=== PATIENT | female | born 1985 | race Caucasian/White ===

== ENCOUNTER 2018-09-03 00:02 | Inpatient (IN) | payer BC, OTHER ==
[2018-09-03 00:43] LABS: #Eosinphils 0.1 thou/uL (0.0-0.7); #Lymphocytes 0.9 thou/uL (1.20-3.40); #Monocytes 0.7 thou/uL (0.11-0.59); #Neutrophils 8.6 thou/uL (1.40-6.50); %Basophils 0.3 % (0.0-1.0); %Eosinophils 0.7 % (0.0-10.0); %Lymphocytes 8.9 % (21.0-51.0); %Monocytes 6.4 % (0.0-10.0); %Neutrophils 83.7 % (42.0-75.0); Hemoglobin 14.1 g/dL (12.0-16.0); Mean Corpuscular HGB CONC 33.4 g/dL (32.0-36.0); Mean Corpuscular Hemoglobin 30.5 pg (27.0-31.0); Mean Corpuscular Volume 91.5 fL (78.0-98.0); Mean Platelet Volume 8.4 fL (7.4-10.4); Platelet Count 249 thou/uL (130-400); RBC Distribution Width 11.9 % (11.5-14.5); White Blood Cell (WBC) Count 10.2 thou/uL (4.8-10.8)
[2018-09-03 01:03] LABS: ALT (SGPT) 189 U/L (8-55); AST (SGOT) 104 U/L (5-34); Albumin 4.2 g/dL (3.5-5.0); Alkaline Phosphatase 273 U/L (40-150); Anion Gap 17 mmol/L (10-20); BUN (Urea Nitrogen) 8 mg/dL (7.0-18.7); Bilirubin, Total 8.3 mg/dL (0.2-1.2); Calc. Creatinine Clearance 0 mL/min (70-130); Calcium 9.6 mg/dL (7.8-10.44); Carbon Dioxide 22 mmol/L (22-29); Chloride 100 mmol/L (98-107); Estimated GFR-MDRD Greater than 90; Globulin 3.4 g/dL (2.4-3.5); Glucose 90 mg/dL (70-105); Lipase 13 U/L (8-78); Potassium 3.8 mmol/L (3.5-5.1); Protein, Total 7.6 g/dL (6.0-8.3); Sodium 135 mmol/L (136-145)
[2018-09-03] MEDS ORDERED: Ondansetron PF 4 MG/2 ML Vial ONE ×2 (01:37→14:16)
[2018-09-03] MEDS ORDERED: Fentanyl 100 MCG/2 ML VIAL ONE ×3 (01:37→23:55)
[2018-09-03] MEDS ORDERED: MEROPENEM 1 GM/50 ML 1 GM in Premix Bag 1 BAG IVPB SCH (02:15)
[2018-09-03 02:30] LABS: BHCG - Serum Negative (NEGATIVE); Pregs Control Background? CLEAR/WHITE (CLR/WHITE); Pregs Control Bar Appear? YES (CONTROL BAR)
[2018-09-03] MEDS ORDERED: cefOXitin Sodium/Dextrose,Iso 1 GM in Premix Bag 1 BAG IVPB SCH ×2 (02:30→09:00)
[2018-09-03 02:52] LABS: Pregnancy Test - Urine (BHCG) Negative (Negative); Pregu Control Background? CLEAR/WHITE (CLR/WHITE); Pregu Control Bar Appear? YES (CONTROL BAR)
[2018-09-03 02:53] LABS: Bilirubin Large (Negative); Blood, Urine Negative (Negative); Clarity CLEAR (Clear); Glucose, Urine (Dipstick) Negative (Negative); Leukocyte Negative (Negative); Nitrite Negative (Negative); Protein, Urine (Dipstick) Negative (Neg-Trace); Specific Gravity 1.013 (1.002-1.036); Specific Gravity, Urine 1.013 (1.002-1.036)
[2018-09-03] MEDS ORDERED: Ondansetron PF 4 MG/2 ML Vial IVP PRN ×3 (03:24→22:56)
[2018-09-03 03:26] VITALS: BMI 18.9
[2018-09-03] MEDS: Sodium Chloride 0.9% 1,000 ML IV SCH ×2 (03:53→13:54)
[2018-09-03] MEDS: Fentanyl 100 MCG/2 ML VIAL SLOW IVP PRN ×2 (09:21→13:28)
--- NOTE | 2018-09-03 09:54 | CON ---
DATE OF CONSULTATION: 09/03/2018 REASON FOR CONSULTATION: Choledocholithiasis. HISTORY OF PRESENT ILLNESS: Shivani Bonner is a 33-year-old woman who is generally healthy. She has no prior history of gastrointestinal, liver, pancreatic, or gallbladder issues. For the past couple of years, she has intermittently had some issues with right upper quadrant pain, but now for the past couple of weeks this has been escalating. There has been associated nausea with one episode of vomiting. The pain really escalated last night which prompted her presentation. Upon evaluation, she was found to have significant elevation in LFTs with total bilirubin up to 8.3, AST 104, ALT 189. Lipase is normal. She had an ultrasound of the abdomen, which demonstrated a contracted gallbladder with gallstones and a common bile duct dilated to 9 mm. She then had a CT of the abdomen and this demonstrated thickening of the gallbladder with stones, though the common bile duct was read as normal in caliber on the CT examination. She is doing a bit better with some analgesia overnight on the floor. She is hemodynamically stable. Surgical consultation is pending. Reconsulted for consideration of ERCP and concern for choledocholithiasis. REVIEW OF SYSTEMS: Full review of systems including constitutional, head, eyes, ears, nose, throat, GI, , cardiovascular, respiratory, musculoskeletal, neurologic systems is negative except as noted in the HPI. PAST MEDICAL HISTORY: Nothing significant. ALLERGIES: NO KNOWN DRUG ALLERGIES. MEDICATIONS: None. SOCIAL HISTORY: No smoking, alcohol, or drug use. FAMILY HISTORY: Noncontributory. PHYSICAL EXAMINATION: VITAL SIGNS: Temperature 98.1, pulse 74, blood pressure 90/55, and 97% oxygen saturation on room air. GENERAL: A 33-year-old woman lying in bed comfortably, in no distress. SKIN: She is slightly jaundiced. No rash visible or palpable. EYES: Mild scleral icterus. Extraocular movements intact. ENT: Mucous membranes moist. No oral lesions. LYMPH: No submandibular or supraclavicular lymphadenopathy. THYROID: Nontender to palpation. HEART: Regular rate and rhythm. LUNGS: Clear to auscultation bilaterally. ABDOMEN: Bowel sounds present. Soft. Tender to palpation in the right upper quadrant. No guarding or rebound tenderness. EXTREMITIES: No peripheral edema. VESSELS: Radial pulses 2+ bilaterally. NEUROLOGIC: Cranial nerves 2 to 12 intact bilaterally. No focal deficits. LABORATORY STUDIES: Total bilirubin 8.3, alkaline phosphatase 273, AST 104, ALT 189, albumin 4.2. test negative. BUN 8, creatinine 0.66. Lipase only 13. WBC 10.2, hemoglobin is 14.1, platelets 249. IMAGING STUDIES: Abdominal ultrasound shows common bile duct dilation to 9 mm, contracted gallbladder with gallstones, heterogeneous appearance to the liver. CT scan of the abdomen demonstrates thickened gallbladder wall with gallstones. CBD was read as normal on the CT. ASSESSMENT AND PLAN: 1. Choledocholithiasis. 2. Cholecystitis. I had a long discussion with the patient this morning regarding her imaging and lab findings, the significant elevation of bilirubin as well as imaging suggesting biliary dilation, all seems consistent with choledocholithiasis and cholecystitis. She is going to need ERCP and laparoscopic cholecystectomy. I discussed the case also with Dr. Rees who will see the patient later today. We are going to plan for ERCP later today, perhaps followed by laparoscopic cholecystectomy either directly afterward or tomorrow. I discussed the risks and benefits of ERCP with the patient. She does desire to proceed for now, continue current supportive care. She is receiving IV antibiotics. Job ID: [id number]
[2018-09-03] MEDS ORDERED: Morphine 4 MG/ML VIAL SLOW IVP PRN ×2 (13:08→23:30)
[2018-09-03] MEDS ORDERED: Dextrose 5% in Water 1,000 ML IV PRN (13:08)
[2018-09-03] MEDS ORDERED: Dextrose 50% Abboject 50 ML SYRINGE SLOW IVP PRN (13:08)
[2018-09-03] MEDS ORDERED: cefOXitin Sodium/Dextrose,Iso 2 GM in Premix Bag 1 BAG IVPB SCH (13:15)
[2018-09-03] MEDS ORDERED: PROPOFOL 200 MG/20 ML VIAL ONE (14:16)
[2018-09-03] MEDS ORDERED: Glycopyrrolate 0.2 MG/ML 5 ML SYRINGE ONE (14:16)
[2018-09-03] MEDS ORDERED: Ketorolac Tromethamine 30 MG/ML VIAL ONE (14:16)
[2018-09-03] MEDS ORDERED: Rocuronium Bromide 10 MG/ML (10ML VIAL) ONE (14:16)
[2018-09-03] MEDS ORDERED: Succinylcholine Chloride 20 MG/ML 10 ml SYRINGE FS ONE ×2 (14:16→17:58)
[2018-09-03] MEDS ORDERED: Dexamethasone 20 MG/5 ML VIAL ONE (14:16)
[2018-09-03] MEDS ORDERED: Metoclopramide HCl 10 MG/2 ML VIAL ONE (14:16)
[2018-09-03] MEDS ORDERED: Lidocaine 1% PF 5 ML VIAL ONE (14:16)
--- NOTE | 2018-09-03 14:40 | HP ---
CHIEF COMPLAINT: Epigastric abdominal pain. HISTORY OF PRESENT ILLNESS: The patient is a 33-year-old very pleasant white female. She is quite thin (her BMI looks like it is 19). For the past couple of weeks, she has been having epigastric abdominal pain. She saw a physician in [place], who ordered some laboratory studies that apparently showed some elevated liver function tests. I do not have these results. He ordered outpatient radiologic studies on her yesterday. She had a CT scan of her abdomen and pelvis as well as an abdominal ultrasound performed. The CT scan showed a thickened gallbladder wall. It was felt to be the typical of cholelithiasis. No definite ductal dilatation was noted. The gallbladder ultrasound revealed findings typical of a contracted gallbladder with gallstones. There appeared to be ductal dilatation as well. LABORATORY STUDIES: Revealed a normal CBC, although she did have a left shift. Her chemistry profile revealed essentially normal electrolytes, but her bilirubin is elevated at 8.3. Her transaminases are elevated at 104 and 189. Her alkaline phosphatase is elevated at 273. Her lipase is negative and her test was negative. Following her abnormal x-ray studies, she felt that she could not make it through the weekend due to her discomfort and she presented to the emergency room. It was at that point the laboratory studies were performed. I was then consulted for further management. Due to the markedly elevated bilirubin level and the suspected ductal dilatation, I recommended admission to my service with a GI consultation to Dr. Ricardo. He has already seen her and recommended ERCP, with which I agree. PAST MEDICAL HISTORY: Essentially negative. PAST SURGICAL HISTORY: None. MEDICATIONS: None. ALLERGIES: NO KNOWN DRUG ALLERGIES. PERSONAL AND SOCIAL HISTORY: She is with 5 children and lives in [place]. Her works for [employer]. REVIEW OF SYSTEMS: Otherwise unremarkable. FAMILY HISTORY: Noncontributory. PHYSICAL EXAMINATION: VITAL SIGNS: She is afebrile. Pulse is 66 to 74, blood pressure is 101/62. GENERAL: She is a well-developed, well-nourished, very pleasant female, resting in bed, in no acute distress. She is alert oriented x3. HEAD, EYES, EARS, NOSE, AND THROAT: Unremarkable. NECK: Supple without mass or tenderness. LUNGS: Clear to auscultation throughout. CARDIAC: Regular rate and rhythm without murmur. ABDOMEN: Soft and nondistended. She does complain of tenderness in the right upper quadrant that is worse with palpation. EXTREMITIES: Unremarkable. ASSESSMENT: The patient with what appears to be cholelithiasis and potentially choledocholithiasis. I agree with ERCP per Dr. Ricardo. When he completes his procedure, I would plan on performing laparoscopic cholecystectomy under the same anesthetic. I have discussed all this in detail with the patient. She understands and agrees to proceed with the surgery at this time. Job ID: [id number]
[2018-09-03] MEDS: D5 1/2 NS w/20 mEq KCL 1,000 ML IV SCH (16:11)
[2018-09-03] MEDS ORDERED: Iothalamate Meglumine 60% 50 ML VIAL FS ONE ×2 (17:36→19:49)
[2018-09-03] MEDS ORDERED: Midazolam HCl 2 mg/2 ml Vial ONE ×2 (17:38→17:50)
[2018-09-03] MEDS ORDERED: Fentanyl 250 MCG/5 ML VIAL ONE (17:38)
[2018-09-03] MEDS ORDERED: Indomethacin 50 MG SUPP ONE (17:41)
[2018-09-03] MEDS ORDERED: Bupivacaine/Epinephrine 0.25% 30 ML VIAL ONE ×2 (18:30→19:18)
--- NOTE | 2018-09-03 19:35 | RAD ---
ERCP: 09/03/18 HISTORY: Patient with biliary obstruction. Single intraoperative ERCP images obtained of the right upper quadrant of the abdomen. There is a gastroduodenal scope in place. The distal common bile duct has been catheterized and injec ml. A balloon is seen in the distal aspect. The proximal aspect of the common bile duct as well as t he common hepatic duct and intrahepatic biliary ducts are dilated. Radiopaque contrast seen in the co tito. IMPRESSION: Dilated common bile duct with intrahepatic biliary dilatation. POS: EZEQUIEL
--- NOTE | 2018-09-03 20:30 | OP ---
DATE OF PROCEDURE: 09/03/2018 SALES RECORD CLERK SURGEON: None. PROCEDURE PERFORMED: Endoscopic retrograde cholangiopancreatography with biliary sphincterotomy and balloon extraction of pus from the common bile duct. INDICATION: A 33-year-old woman who presented with markedly elevated LFTs including bilirubin over 8, with imaging showing common bile duct dilation and cholecystitis, all highly suggestive of choledocholithiasis. MEDICATIONS: 1. See Anesthesia record. 2. Indomethacin 100 mg per rectum. FINDINGS: After discussion of the risks, benefits, and alternatives of the procedure, informed consent was obtained and witnessed. Pre-endoscopic cardiopulmonary examination was satisfactory. Time-out was performed before sedation was achieved. Sedation was achieved with Anesthesia assistance in the endoscopy unit, with the patient under general anesthesia. The patient was placed in a prone position on the fluoroscopy table. A Pentax adult side-viewing duodenoscope was advanced beyond the mouth down the esophagus, beyond the stomach into the second portion of the duodenum. The ampulla was brought into view with the endoscope in the short position. There was a very large periampullary diverticulum. The ampulla itself was quite small and was actually difficult to locate it first. Once the ampulla was located, we were able to use a 0.035 guidewire and triple lumen dome tip sphincterotome to selectively cannulate the common bile duct. The wire was passed up easily into the left intrahepatic system. Cholangiogram was then performed. This showed some mild dilation above the common bile duct. On initial cholangiogram images, there was a filling defect in the proximal common bile duct near the cystic duct takeoff, which appeared to be a large stone. With further manipulation with a catheter, this filling defect appeared to be relocated to the cystic duct itself. The left intrahepatic duct filled very well. The right intrahepatic duct did not fill as well. The cystic duct appeared dilated, and it became evident that there were multiple filling defects within the dilated cystic duct consistent with stones. Biliary sphincterotomy was then performed. At this point, we performed multiple balloon sweeps of the common bile duct with a 12 to 15 mm balloon both partially and fully inflated. The balloon passed through the ampulla easily. In this fashion, we swept out a moderate amount of white pus from the common bile duct. There were no large stones swept out of the duct. Occlusion cholangiogram demonstrated no residual filling defects in the common bile duct. One final sweep of the common bile duct was performed. We were unable to do anything about what appeared to be stones in the cystic duct. The working apparatus was completely withdrawn. The endoscope was withdrawn suctioning out excess air and fluid and the procedure was completed. The patient tolerated the procedure well. There were no immediate postprocedure complications. She is being taken straight to the operating room for planned cholecystectomy with Dr. Rees. Postprocedure fluoroscopic images demonstrated no retroperitoneal or subdiaphragmatic free air. IMPRESSION: 1. Successful endoscopic retrograde cholangiopancreatography with biliary sphincterotomy and balloon extraction of pus from the common bile duct. 2. Filling defects within the dilated cystic duct, likely representing stones, unable to be removed on endoscopic retrograde cholangiopancreatography. 3. Large periampullary diverticulum. RECOMMENDATION: Proceed with cholecystectomy as planned. Job ID: [id number]
--- NOTE | 2018-09-03 22:39 | RAD ---
INTRAOPERATIVE CHOLANGIOGRAM: 09/03/18 Single AP view obtained during intraoperative cholangiogram. Patient with history of cholecystectomy. There is injection into the common bile duct and common hepatic ducts through the cholangiogram tube. There is filling of the biliary system with free flow into the duodenum. IMPRESSION: Successful intraoperative cholangiogram. POS: EZEQUIEL
[2018-09-03] MEDS ORDERED: Naloxone HCl 0.4 mg/ml Vial IV PRN (22:56)
[2018-09-03] MEDS ORDERED: Promethazine HCl 25 MG/ML VIAL SLOW IVP PRN (22:56)
[2018-09-03] MEDS ORDERED: Zolpidem Tartrate 5 MG TAB PO PRN (22:56)
[2018-09-03] MEDS ORDERED: Promethazine HCl 25 MG/ML VIAL IM PRN ×2 (22:56)
[2018-09-03] MEDS ORDERED: diphenhydrAMINE 50 MG/ML VIAL IVP PRN (22:56)
[2018-09-03] MEDS ORDERED: diphenhydrAMINE 50 MG/ML VIAL IM PRN (22:56)
[2018-09-03] MEDS ORDERED: Ondansetron HCl/PF 4 MG/2 ML Vial IVP PRN (22:56)
[2018-09-03] MEDS ORDERED: fentaNYL Citrate/PF 2,000 MCG in Sodium Chloride 0.9% 60 ML IV PRN (22:56)
[2018-09-03] MEDS ORDERED: diphenhydrAMINE 25 MG CAP PO PRN (22:56)
[2018-09-03] MEDS ORDERED: Communication Order-Pharmacy FS SCH (23:00)
[2018-09-03] MEDS ORDERED: Naloxone HCl 0.4 mg/ml Vial ONE (23:25)
[2018-09-03] MEDS: Famotidine/PF 20 mg/2ml Vial SLOW IVP SCH (23:37)
[2018-09-04] MEDS: D5 1/2 NS w/20 mEq KCL 1,000 ML IV SCH ×3 (01:46→18:04)
[2018-09-04] MEDS: Ketorolac Tromethamine 30 MG/ML VIAL IVP SCH ×4 (01:46→18:02)
[2018-09-04 06:51] LABS: #Lymphocytes 0.4 thou/uL (1.20-3.40); #Monocytes 0.9 thou/uL (0.11-0.59); #Neutrophils 16.3 thou/uL (1.40-6.50); %Eosinophils 0.1 % (0.0-10.0); %Lymphocytes 2.4 % (21.0-51.0); %Monocytes 5.1 % (0.0-10.0); %Neutrophils 92.4 % (42.0-75.0); Hemoglobin 12.9 g/dL (12.0-16.0); Mean Corpuscular HGB CONC 32.3 g/dL (32.0-36.0); Mean Corpuscular Hemoglobin 29.8 pg (27.0-31.0); Mean Corpuscular Volume 92.4 fL (78.0-98.0); Mean Platelet Volume 8.5 fL (7.4-10.4); Platelet Count 266 thou/uL (130-400); RBC Distribution Width 11.9 % (11.5-14.5); Red Blood Cell (RBC) Count 4.32 mill/uL (4.20-5.40); White Blood Cell (WBC) Count 17.6 thou/uL (4.8-10.8)
[2018-09-04 07:09] LABS: ALT (SGPT) 134 U/L (8-55); AST (SGOT) 83 U/L (5-34); Albumin 3.4 g/dL (3.5-5.0); Alkaline Phosphatase 265 U/L (40-150); Anion Gap 16 mmol/L (10-20); BUN (Urea Nitrogen) 5 mg/dL (7.0-18.7); Bilirubin, Total 7.9 mg/dL (0.2-1.2); Calc. Creatinine Clearance 95 mL/min (70-130); Calcium 8.8 mg/dL (7.8-10.44); Carbon Dioxide 17 mmol/L (22-29); Chloride 106 mmol/L (98-107); Estimated GFR-MDRD Greater than 90; Globulin 2.8 g/dL (2.4-3.5); Glucose 108 mg/dL (70-105); Potassium 4.6 mmol/L (3.5-5.1); Protein, Total 6.2 g/dL (6.0-8.3); Sodium 134 mmol/L (136-145)
[2018-09-04] MEDS: Famotidine/PF 20 mg/2ml Vial SLOW IVP SCH ×2 (08:40→22:09)
--- NOTE | 2018-09-04 09:53 | PRG ---
DATE OF SERVICE: 09/04/2018 SUBJECTIVE: Ms. Bonner is postoperative day #1 from laparoscopic surgery converted to open in treatment of extensive cholelithiasis and Mirizzi's syndrome. She had an open closure of a large choledochostomy over a T-tube at the time of her surgery. This morning, she has no complaints except a discomfort from her nasogastric tube. She denies significant abdominal pain. She has voided and ambulated somewhat. OBJECTIVE: VITAL SIGNS: On examination, she is afebrile. Pulse is 87, blood pressure 110/69. LUNGS: Clear to auscultation. ABDOMEN: Her abdomen is soft, but with no discernible bowel sounds this morning. Dressings are intact. T-Tube is in place as well as her BREE drain. There has been minimal drainage from both. LABORATORY STUDIES: This morning show some minor electrolyte changes. Her bilirubin is dropped from 8.3 to 7.9. Other liver function tests are more or less stable. Her hemoglobin is 12.9, white blood cell count 17.6. ASSESSMENT: She appears to be doing well following open cholecystectomy and closure of choledochostomy in treatment of Mirizzi's syndrome. Today, I will remove her nasogastric tube and encourage activity. She may have sips of water and ice chips. We will recheck her laboratory studies tomorrow to ensure appropriate trend in terms of her bilirubin. Job ID: [id number]
--- NOTE | 2018-09-04 13:36 | PRG ---
DATE OF SERVICE: 09/04/2018 SUBJECTIVE: Ms. Bonner underwent laparoscopic converted to open cholecystectomy yesterday following her ERCP. She was found to have severe cholecystitis with very large gallstones and Mirizzi syndrome. Dr. Rees placed a T-tube. The surgery was successful. The patient was able to get some sleep last night. This morning, she has had some generalized abdominal discomfort, some minimal nausea, no vomiting. She is tolerating sips of water at this point. OBJECTIVE: VITAL SIGNS: Temperature 98.5, pulse 98, blood pressure 114/73, and 91% oxygen saturation on room air. GENERAL: Still jaundiced. No rashes were palpable. No acute distress. HEART: Regular rate and rhythm. LUNGS: Clear to auscultation bilaterally. ABDOMEN: Surgical incision looks good. Diffuse tenderness to palpation. No rebound tenderness. EXTREMITIES: No peripheral edema. LABORATORY STUDIES: WBC 17.6, hemoglobin 12.9, platelets 266. Sodium 134, potassium 4.6, BUN 5, creatinine 0.67, total bilirubin down to 7.9, alkaline phosphatase 265, AST 83, ALT 134, albumin 3.4. ASSESSMENT AND PLAN: 1. Mirizzi syndrome. 2. Cholecystitis with cholelithiasis. The patient is doing well following open cholecystectomy and closure of choledocostomy following endoscopic retrograde cholangiopancreatography with clearance of the common bile duct yesterday. Expect LFTs will gradually improve toward normal, though this may take several days to weeks. Dietary advancement and routine postoperative care per Dr. Rees. GI will sign off at this time, but please call back anytime with questions or concerns. Job ID: [id number]
[2018-09-05] MEDS: Ketorolac Tromethamine 30 MG/ML VIAL IVP SCH ×4 (01:09→18:09)
[2018-09-05] MEDS: D5 1/2 NS w/20 mEq KCL 1,000 ML IV SCH ×4 (03:05→20:35)
[2018-09-05 06:44] LABS: #Eosinphils 0.1 thou/uL (0.0-0.7); #Lymphocytes 1.3 thou/uL (1.20-3.40); #Monocytes 0.6 thou/uL (0.11-0.59); %Basophils 0.1 % (0.0-1.0); %Eosinophils 1.2 % (0.0-10.0); %Lymphocytes 13.9 % (21.0-51.0); %Monocytes 7.1 % (0.0-10.0); %Neutrophils 77.7 % (42.0-75.0); Hemoglobin 11.5 g/dL (12.0-16.0); Mean Corpuscular HGB CONC 32.4 g/dL (32.0-36.0); Mean Corpuscular Hemoglobin 30.1 pg (27.0-31.0); Mean Corpuscular Volume 92.8 fL (78.0-98.0); Mean Platelet Volume 8.5 fL (7.4-10.4); Platelet Count 265 thou/uL (130-400); RBC Distribution Width 12.5 % (11.5-14.5); Red Blood Cell (RBC) Count 3.82 mill/uL (4.20-5.40)
[2018-09-05 07:05] LABS: ALT (SGPT) 91 U/L (8-55); AST (SGOT) 50 U/L (5-34); Alkaline Phosphatase 219 U/L (40-150); Anion Gap 10 mmol/L (10-20); BUN (Urea Nitrogen) 5 mg/dL (7.0-18.7); Bilirubin, Total 5.8 mg/dL (0.2-1.2); Calc. Creatinine Clearance 103 mL/min (70-130); Calcium 8.5 mg/dL (7.8-10.44); Carbon Dioxide 23 mmol/L (22-29); Chloride 108 mmol/L (98-107); Estimated GFR-MDRD Greater than 90; Globulin 2.7 g/dL (2.4-3.5); Glucose 140 mg/dL (70-105); Potassium 4.2 mmol/L (3.5-5.1); Protein, Total 5.7 g/dL (6.0-8.3); Sodium 137 mmol/L (136-145)
[2018-09-05] MEDS: Famotidine/PF 20 mg/2ml Vial SLOW IVP SCH ×2 (08:32→22:15)
--- NOTE | 2018-09-05 10:26 | PRG ---
DATE OF SERVICE: 09/05/2018 SUBJECTIVE: Ms. Bonner is postoperative day #2 from open cholecystectomy with repair of her common bile duct opening over a T-tube. She notes that she is having trouble maintaining oxygen saturation. She tells me she has not walked in the hallway. Her nasogastric tube was removed yesterday and she has had no vomiting. OBJECTIVE: VITAL SIGNS: Her temperature is 98.1, pulse 87, blood pressure is 98/62, oxygen saturation about 92% on 2 L. LUNGS: Clear to auscultation anteriorly. CARDIAC: Regular rate and rhythm. ABDOMEN: Has bowel sounds that are normoactive. The right upper quadrant umbilical incisions are both healing nicely. Drain sites are inspected and found to be clean. There is appropriate clear bile in the T-tube bag and serosanguineous fluid in the BREE drain. LABORATORY DATA: Her electrolytes are unremarkable. Her bilirubin is down from 7.9 yesterday to 5.8 today. Other liver function tests are improving as well. CBC reveals a normal white blood cell count of 9.0 with a hemoglobin of 11.5. ASSESSMENT: She is doing well following her surgery. She has resolution of ileus, and her clear liquid diet will be initiated. I will plan to clamp her T-tube tomorrow, and continue checking her liver function tests. I have cautioned her about atelectasis. She needs to cough regularly and deep breathe and ambulate. This is all demonstrated for the patient. Job ID: [id number]
[2018-09-05] MEDS ORDERED: Morphine 4 MG/ML VIAL SLOW IVP PRN (15:44)
[2018-09-06] MEDS: Ketorolac Tromethamine 30 MG/ML VIAL IVP SCH ×5 (00:25→23:15)
[2018-09-06] MEDS: D5 1/2 NS w/20 mEq KCL 1,000 ML IV SCH (05:18)
[2018-09-06 07:23] LABS: ALT (SGPT) 93 U/L (8-55); AST (SGOT) 59 U/L (5-34); Albumin 3.1 g/dL (3.5-5.0); Alkaline Phosphatase 208 U/L (40-150); Bilirubin, Direct 4.3 mg/dL (0.1-0.3); Protein, Total 6.1 g/dL (6.0-8.3)
[2018-09-06] MEDS: Famotidine/PF 20 mg/2ml Vial SLOW IVP SCH ×2 (08:23→20:53)
[2018-09-06 08:32] LABS: #Eosinphils 0.2 thou/uL (0.0-0.7); #Lymphocytes 1.1 thou/uL (1.20-3.40); #Monocytes 0.4 thou/uL (0.11-0.59); #Neutrophils 3.5 thou/uL (1.40-6.50); %Basophils 0.3 % (0.0-1.0); %Eosinophils 3.7 % (0.0-10.0); %Lymphocytes 20.9 % (21.0-51.0); %Monocytes 7.7 % (0.0-10.0); %Neutrophils 67.5 % (42.0-75.0); Hemoglobin 11.3 g/dL (12.0-16.0); Mean Corpuscular HGB CONC 32.7 g/dL (32.0-36.0); Mean Corpuscular Hemoglobin 30.2 pg (27.0-31.0); Mean Corpuscular Volume 92.3 fL (78.0-98.0); Mean Platelet Volume 8.5 fL (7.4-10.4); Platelet Count 264 thou/uL (130-400); RBC Distribution Width 12.3 % (11.5-14.5); Red Blood Cell (RBC) Count 3.74 mill/uL (4.20-5.40); White Blood Cell (WBC) Count 5.2 thou/uL (4.8-10.8)
[2018-09-06] MEDS ORDERED: D5 1/2 NS w/20 mEq KCL 1,000 ML IV SCH (16:00)
--- NOTE | 2018-09-06 16:12 | PRG ---
DATE OF SERVICE: 09/06/2018 SUBJECTIVE: Ms. Bonner is postoperative day #3 from open cholecystectomy with repair of common bile duct over a T-tube in treatment of Mirizzi syndrome and extensive cholelithiasis. She feels much better today. She is ambulating regularly and is doing a better job with pulmonary toilet. She has been on a clear liquid diet as tolerated this uneventfully without nausea or vomiting. OBJECTIVE: VITAL SIGNS: She is afebrile, pulse is 79, and blood pressure is 104/70. LUNGS: Clear to auscultation. ABDOMEN: Soft and nontender. Incisions healing nicely. She has excellent bilious output from her T-tube and serosanguineous material from her BREE drain. LABORATORY DATA: Her labs show a stable CBC. Her bilirubin is stable at 6.0 (5.8 yesterday). ASSESSMENT: She seems to continue to do well. Today, her T-tube will be clamped and liver function tests will be checked in the morning. I will leave her drain in place until after her T-tube was clamped and there is no evidence of a bile leak. I will advance her diet up to a full liquid diet today. Job ID: [id number]
[2018-09-06] MEDS: Acetaminophen 500 MG TAB PO PRN (20:53)
[2018-09-06] MEDS: Ibuprofen 600 MG TAB PO PRN (23:15)
[2018-09-07] MEDS: Ibuprofen 600 MG TAB PO PRN ×2 (06:28→14:07)
[2018-09-07] MEDS: Ketorolac Tromethamine 30 MG/ML VIAL IVP SCH (06:29)
[2018-09-07 07:28] LABS: ALT (SGPT) 97 U/L (8-55); AST (SGOT) 66 U/L (5-34); Alkaline Phosphatase 191 U/L (40-150); Bilirubin, Direct 4.1 mg/dL (0.1-0.3); Bilirubin, Total 5.5 mg/dL (0.2-1.2); Protein, Total 5.8 g/dL (6.0-8.3)
[2018-09-07] MEDS ORDERED: Milk Of Magnesia 30 ML UDCUP PO PRN (08:20)
[2018-09-07] MEDS ORDERED: HYDROcodone/Acetaminophen 5/325 mg Tablet PO PRN ×2 (08:21)
[2018-09-07] MEDS ORDERED: Milk Of Magnesia 30 ML UDCUP PO SCH (09:00)
[2018-09-07] MEDS: Acetaminophen 500 MG TAB PO PRN (09:11)
[2018-09-07 12:02] VITALS: TEMP 98.2
--- NOTE | 2018-09-07 14:25 | DIS ---
DATE OF ADMISSION: 09/03/2018 DATE OF DISCHARGE: 09/07/2018 ADMISSION DIAGNOSIS: Cholelithiasis with possible choledocholithiasis. DISCHARGE DIAGNOSIS: Cholelithiasis with possible choledocholithiasis with finding of Mirizzi's syndrome. PROCEDURES PERFORMED: Endoscopic retrograde cholangiopancreatography per Dr. Gavino Ricardo on 09/03/2018, attempted laparoscopic cholecystectomy with conversion to open cholecystectomy with repair of choledochotomy over a T-tube per Dr. Rees on 09/03/2018. ADMISSION HISTORY: The patient is a very pleasant 33-year-old white female. She presented with a 2-to 3-week history of progressively severe epigastric abdominal pain. When she presented to the emergency room today, she was found to have a bilirubin level of 8. Her imaging studies revealed cholelithiasis and potentially dilated common duct. She was admitted for further management. HOSPITAL COURSE: She was admitted to the hospital and seen in consultation by Dr. Ricardo. He performed an ERCP, which revealed a dilated duct with what appeared to be intermittent obstruction of the duct distal to the hepatic bifurcation. She was subsequently taken to the operating room by myself for attempted laparoscopic cholecystectomy. This proved to be very difficult, although it was recognized quickly that she had what appeared to be Mirizzi's syndrome. I could not dissect the severely inflamed gallbladder off the duct and liver without it tearing and I therefore converted to open. I completed a subtotal cholecystectomy, leaving most of the back wall intact. There were several large gallstones removed along with the gallbladder. The subsequent defect in the common duct was repaired over a T-tube and a BREE drain was placed as well. She tolerated her surgery well. She has made appropriate progress after the surgery. She has advanced her diet uneventfully. Her pain has been well controlled. As of yesterday, postoperative day #3, I ligated her T-tube externally. This morning, her bilirubin continues to drop and is 5.5 this morning (down from 6 yesterday). There is no bilious output from her BREE drain. I therefore will remove her BREE drain today and discharge her home with a T-tube intact but ligated. I will plan to see her back when she is about 10 to 14 days out from the surgery and will remove robby and hopefully, her T-tube at that time. I would plan to obtain a T-tube cholangiogram on the morning of her T-tube removal. Job ID: [id number]
[2018-09-07 15:23] VITALS: BP 100/67
--- NOTE | 2018-09-08 03:14 | OP ---
DATE OF PROCEDURE: 09/03/2018 PREOPERATIVE DIAGNOSIS: Cholecystitis with possible choledocholithiasis. 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 PROCEDURES PERFORMED: Attempted laparoscopy with conversion to an open cholecystectomy with repair of a choledochotomy over a T-tube. ANESTHESIA: General endotracheal. INDICATIONS FOR PROCEDURE: The patient is a 33-year-old white female. She presented to the hospital complaining of severe upper abdominal pain, progressive over the course of few weeks. She was noted to have marked hyperbilirubinemia with a bilirubin level of 8. Dr. Gavino Ricardo was consulted and performed an ERCP prior to the surgery. Initial images showed that no contrast was passing retrograde to the level of the bifurcation. Subsequent images revealed contrast easily passed through the bifurcation with an abnormal appearance suspected to be the gallbladder. The patient was taken to the operating room at this time for planned laparoscopic cholecystectomy with intraoperative cholangiogram. DESCRIPTION OF PROCEDURE: Informed consent was obtained. The patient was taken to the operating room, where general endotracheal anesthesia was obtained with the patient in supine position. Abdomen was prepped with ChloraPrep and draped in sterile fashion. Local anesthetic was infiltrated using 0.25% Marcaine with epinephrine. An 11-mm infraumbilical incision was created, through which a Veress needle was passed into the peritoneal cavity and pneumoperitoneum was established with carbon dioxide up to pressure of 15 mmHg. An 11-mm trocar port was passed through the same incision and laparoscopic camera was passed through this port. Under direct vision, three additional 5-mm right upper quadrant ports were placed. Attention was turned to the liver and the gallbladder. There were substantial adhesions to the underside of the liver and the gallbladder, and these were all taken down carefully using electrocautery. I was able to grasp the fundus of the gallbladder and retract this in a cephalad direction. There was substantial inflammation at this level. I had to dissect some bowel down off the biliary structures and this was done carefully. I began dissecting at what appeared to be the apex of the gallbladder, but that was difficult to discern because the anatomy was altered by severe inflammation. I carefully dissected the lateral aspect of the right side of the gallbladder, but I had difficulty finding a plane between the gallbladder and the liver that I could dissect. I attempted the left side. At one point, I was dissecting up the left side and it did seem that I was close to perhaps a ductal structure that I discerned likely the common hepatic duct. I continued dissecting on the anterior aspect of this. 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 I continued to try to dissect the gallbladder away from the liver to perhaps get behind the gallbladder and then dissected off the duct. In so doing, I got into the gallbladder on a couple of occasions. Large gallstones spilled into the abdomen. These were placed in a specimen retrieval sac that was in position above the liver. I continued to attempt this dissection, but it eventually became clear that I could not dissect through this severely inflamed and indurated tissue in any safe fashion. At this point, I decided to convert to an open operation. A right upper quadrant oblique incision was created utilizing the medial two of the 5 mm incisions. Dissection was carried through skin and subcutaneous tissue. The muscles were divided using electrocautery, and entry was gained into the abdominal cavity. Bookwalter retraction device was assembled. I initially attempted to dissect the gallbladder away from the liver, but found that the inflammation prevented this and at that point, proceeded with a subtotal cholecystectomy, leaving the back wall of the gallbladder intact. I was able to dissect the gallbladder the rest of the way from the liver and off the common duct as well and it was passed off the field. There were approximately 5 good-sized gallstones that were removed along with the gallbladder, and the specimen retrieval sac was retrieved as well. The mucosa of the posterior aspect of the gallbladder was cauterized. The apex was ligated with a [id number]-vdwjz suture of 2-0 silk to prevent any bile leak through the potential cystic duct. Attention was then turned to the common bile duct. Utilizing a right-angle clamp, I was able to identify the anatomy of the duct. This appeared to be amenable to primary repair. I decided to do this using a T-tube. A 12-Malawian T-Tube was obtained, and the crossbar was trimmed to appropriate length and the back wall of that tube was removed. The T-tube was then placed within the common bile duct. The duct was then closed over the T-tube using four interrupted sutures of 4-0 PDS. saline was injected through the tube and it appeared that there was no evidence of leak at the T-tube site. A T-tube cholangiogram was then obtained intraoperatively revealing good flow of contrast both retrograde and anterograde. There was no evidence of filling defect. There was easy spillage into the duodenum. The right upper quadrant was thoroughly irrigated. All irrigant was aspirated. A #19 round fluted drain was brought out in the right lower abdomen and positioned in the subhepatic space and through the foramen of Perry. The T-tube was brought out through the right lower abdominal wall near the BREE drain. Both tubes were secured with 3-0 nylon suture. The area was irrigated and all irrigant was aspirated. The fascia was closed in 2 layers using a running suture of looped #1 PDS to approximate the posterior fascia and a series of interrupted sutures of #1 PDS placed in a [id number] fashion to close the anterior fascia. The wound was then thoroughly irrigated and skin edges approximated with skin robby. Robby were also utilized to close the skin incision at the umbilical incision. Dry gauze dress was placed externally. The T-tube was placed to bile bag, and the BREE drain was placed to bulb suction. There were no complications. The patient tolerated the procedure well and was taken to recovery room in stable condition. Job ID: [id number]
== END 2018-09-07 18:10 | disposition home or self-care (01) | DRG 416 ==
LOC: ERS 00:02 → T4-A 01:45 → SURG A 09-04 00:07
PROVIDERS: ADMIT Specialist; ATTEND Specialist
PROC: 0F798ZZ Dilation of Common Bile Duct, Via Natural or Artificial Opening Endoscopic (ICD-10-PCS; principal; 2018-09-03)
PROC: 0FT40ZZ Resection of Gallbladder, Open Approach (ICD-10-PCS; 2018-09-03)
PROC: 0FJ44ZZ Inspection of Gallbladder, Percutaneous Endoscopic Approach (ICD-10-PCS; 2018-09-03)
PROC: BF10YZZ Fluoroscopy of Bile Ducts using Other Contrast (ICD-10-PCS; 2018-09-03)
DX: K80.71 Calculus of gallbladder and bile duct without cholecystitis with obstruction (principal)
CPT/HCPCS: 36415; 47532; 74330; 80053; 80076; 81003; 81025; 83690; 84703; 85025; 88304; 93005; 96361; 96365; 96375; J0694; J1100; J1885; J2001; J2185; J2250; J2270; J2310; J2405; J2704; J2765; J3010; J7050; Q9961; S0028

== ENCOUNTER 2018-09-16 08:38 | Outpatient (CLI) | payer BC ==
--- NOTE | 2018-09-16 11:47 | RAD ---
FT-tube cholangiogram: 09/16/2018 HISTORY: 33-year-old female status post cholecystectomy for biliary obstruction and cholelithiasis. TECHNIQUE: Patient Financial Representative KUB obtained. Isovue injected into the existing T-tube under brief, intermittent fluoroscopy. FINDINGS: There is contrast opacification of a nondilated common bile duct, common hepatic duct, left and right hepatic ducts, and their proximal branches. No choledocholithiasis identified. Free flow of contrast into the duodenal lumen. IMPRESSION: No evidence of complications.
[2018-09-16] MEDS ORDERED: Iopamidol 300 61% 30 ML VIAL ONE (15:35)
== END 2018-09-16 08:39 | disposition home or self-care (01) ==
LOC: RAD 08:38
PROVIDERS: ATTEND Specialist
DX: K83.1 Obstruction of bile duct (principal)
CPT/HCPCS: 47531; 80076; 84703; Q9967